=== PATIENT | female | born 1990 | race Caucasian/White ===

== ENCOUNTER → 2016-04-24 | Outpatient (CLI) | payer OTHER ==
[~2016-04-24] MED LIST: DEXT30TA7 PO; IBUP-1050 PO
== END | disposition home or self-care (01) ==
LOC: C.PAPS 11:15
PROVIDERS: ATTEND Obstetrics & Gynecology
DX: Z01.419 Encounter for gynecological examination (general) (routine) without abnormal findings (principal)

== ENCOUNTER 2016-05-15 15:11 | Emergency (ER) | payer OTHER ==
[~2016-05-15] VITALS: Ht 160 cm; Wt 46.9 kg
[~2016-05-15 15:11] MED LIST changes: -IBUP-1050 PO
[2016-05-15 15:34] VITALS: TEMP 36.8; Ht 160 cm; Wt 46.9 kg
[2016-05-15] MEDS ORDERED: SUCRALFATE 1 GM TAB PO STA (16:53)
[2016-05-15] MEDS ORDERED: GI COCKTAIL PO STA (16:53)
[2016-05-15] MEDS ORDERED: FAMOTIDINE 20 MG TAB PO STA (16:53)
--- NOTE | 2016-05-15 16:56 | EMERGENCY ROOM VISIT NOTE ---
History Report prepared by Adrienne: Darren Cavanaugh Under the Supervision of: Dr. Omi Arceo M.D. First contact with patient: 16:43 Chief Complaint: CHEST PAIN Stated Complaint: CHEST PRESSURE; SOB Nursing Triage Summary: PT WAS IN [place] 3 WEEKS AGO AND STARTED FEELING LIGHTHEADED WITH CHEST PAIN, SEEN IN AN URGENT CARE IN [place] AND WAS SENT HOME WITH A STEROID PRESCRIPTION AND A DIAGNOSIS OF PLEURESIS. PT CAME BACK TO ID RECENTLY AND WAS SEEN BY HER PCP AND WAS PLACED BACK ON STEROIDS AND HAD A RESOLVE OF THESE SYMPTOMS ON THE . PT FINISHED STEROID PRESCRIPTION AND SUDDENLY YESTERDAY SHE FELT THE SYMPTOMS COME BACK: LIGHTHEADED, DIZZY, WITH CRUSHING CHESTPAIN, 6/10 AT REST, 10/10 WITH ACTIVITY. History of Present Illness The patient is a 25 year old female who presents to the Emergency Room with complaints of waxing and waning chest pain that started around 3 weeks ago while she was on break in [place]. She describes the pain as a tightness, and it is worsened by any exertion, including talking. Whenever she exerts herself, she also gets short of breath. The patient also complains of lightheadedness. Lying still makes the pain a bit better. She went to an ER in [place] before flying back to [place]. She was diagnosed with pleurisies. Her d-dimer was normal there. The patient saw her primary care physician recently when she returned to [place], and the patient was put on Prednisone. The patient says the antibiotic did not relieve her symptoms, but it did make her jittery. She says the symptoms waned on their own for a while, but the pain came back a week ago, and the pain was even worse than before. 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 She says she currently does have the pain. The patient denies any abdominal pain, except for where she had her endometriosis. She has a history of mitral valve prolapse. She is not on control. She is an ex-smoker. The patient has a family history of heart disease. She denies any chance of . She just got off her period 5 days ago. Source of History: patient Onset: 3 weeks ago Position: chest Quality: other (tightness) Timing: waxes/wanes, worsening Modifying Factors (Worsening): exertion Modifying Factors (Relieving): other (staying still) Associated Symptoms: + SOB, No abdominal pain Note: Associated symptoms: Lightheadedness. Review of Systems See HPI for pertinent positives & negatives. A total of 10 systems reviewed and were otherwise negative. Past Medical & Surgical Medical Problems: (1) Mitral valve prolapse (2) Scoliosis Family History No pertinent family history Social History Smoking Status: Former Smoker Alcohol Use: none Drug Use: none Marital Status: in relationship Occupation Status: [employer] Current/Historical Medications Scheduled PRN Ibuprofen (Advil), 200 MG PO Q6H PRN for Pain or Fever Allergies Coded Allergies: Doxycycline (Unverified Allergy, Severe, "SEVERELY SICK" -PT, 12/17/15) Amoxicillin (Verified Allergy, Intermediate, hives, swelling, 12/17/15) Erythromycin (Verified Allergy, Intermediate, swelling, hives, 12/17/15) Gemifloxacin (Verified Allergy, Intermediate, hives, swelling, 12/17/15) Penicillins (Verified Allergy, Intermediate, hives, swelling, 12/17/15) Physical Exam Vital Signs Date Time Temp Pulse Resp B/P Pulse Ox O2 Delivery O2 Flow Rate FiO2 05/15/16 19:46 84 18 106/69 99 Room Air 05/15/16 17:47 91 15 113/80 99 Room Air 05/15/16 17:20 88 05/15/16 17:16 105 16 120/71 100 Room Air 05/15/16 17:11 99 Room Air 05/15/16 17:11 99 Room Air 05/15/16 15:34 96 Room Air 05/15/16 15:34 36.8 125 18 116/67 98 Room Air Physical Exam GENERAL: Patient is a healthy-appearing well-nourished HEAD: Normocephalic atraumatic EYES: Ocular movements intact pupils equal and react to light OROPHARYNX mucous membranes are moist no exudates present no erythema or edema present NECK: Supple no nuchal rigidity CHEST: Good equal expansion LUNGS: Clear and equal to auscultation CARDIAC: Normal S1 and S2 ABDOMEN: Soft nontender no guarding BACK: No CVA tenderness EXTREMITIES: No pain upon palpation normal muscle strength in all groups no clubbing cyanosis or edema NEURO: Patient is following commands is answering questions appropriately. Alert and oriented x3 Cranial Nerves 2-12 grossly intact Medical Decision & Procedures ER Provider Diagnostic Interpretation: X-ray results as stated below per interpretation by me and the radiologist: CHEST ONE VIEW PORTABLE HISTORY: Atypical chest pain. Short of breath. COMPARISON: Chest 01/30/2015. FINDINGS: The lungs are clear. Cardiac silhouette is normal in size. No pleural effusions. No pneumothorax. No change in the thoracic spine dextroscoliosis. IMPRESSION: No acute process. Electronically signed by: Jordan Medina M.D. 05/15/2016 5:31 PM Dictated Date/Time: 05/15/2016 5:30 PM Laboratory Results 05/15/16 17:15 Red Blood Count 4.72, Mean Corpuscular Volume 89.0, Mean Corpuscular Hemoglobin 31.8, Mean Corpuscular Hemoglobin Concent 35.7, Mean Platelet Volume 10.6, Neutrophils (%) (Auto) 70.4, Lymphocytes (%) (Auto) 21.8, Monocytes (%) (Auto) 6.2, Eosinophils (%) (Auto) 1.0, Basophils (%) (Auto) 0.5, Neutrophils # (Auto) 5.44, Lymphocytes # (Auto) 1.69, Monocytes # (Auto) 0.48, Eosinophils # (Auto) 0.08, Basophils # (Auto) 0.04 05/15/16 17:15 Test 05/15/16 17:15 05/15/16 17:21 05/15/16 18:51 White Blood Count 7.74 K/uL (4.8-10.8) Red Blood Count 4.72 M/uL (4.2-5.4) Hemoglobin 15.0 g/dL (12.0-16.0) Hematocrit 42.0 % (37-47) Mean Corpuscular Volume 89.0 fL (80-100) Mean Corpuscular Hemoglobin 31.8 pg (25-34) Mean Corpuscular Hemoglobin Concent 35.7 g/dl (32-36) Platelet Count 243 K/uL (130-400) Mean Platelet Volume 10.6 fL (7.4-10.4) Neutrophils (%) (Auto) 70.4 % Lymphocytes (%) (Auto) 21.8 % Monocytes (%) (Auto) 6.2 % Eosinophils (%) (Auto) 1.0 % Basophils (%) (Auto) 0.5 % Neutrophils # (Auto) 5.44 K/uL (1.4-6.5) Lymphocytes # (Auto) 1.69 K/uL (1.2-3.4) Monocytes # (Auto) 0.48 K/uL (0.11-0.59) Eosinophils # (Auto) 0.08 K/uL (0-0.5) Basophils # (Auto) 0.04 K/uL (0-0.2) RDW Standard Deviation 38.6 fL (36.4-46.3) RDW Coefficient of Variation 12.0 % (11.5-14.5) Immature Granulocyte % (Auto) 0.1 % Immature Granulocyte # (Auto) 0.01 K/uL (0.00-0.02) Anion Gap 13.0 mmol/L (3-11) Est Creatinine Clear Calc Drug Dose 99.3 ml/min Estimated GFR () 142.5 Estimated GFR (Non- 122.9 BUN/Creatinine Ratio 22.0 (10-20) Calcium Level 9.2 mg/dl (8.5-10.1) Total Bilirubin 0.5 mg/dl (0.2-1) Direct Bilirubin mg/dl (0-0.2) Aspartate Amino Transf (AST/SGOT) 17 U/L (15-37) Alanine Aminotransferase (ALT/SGPT) 22 U/L (12-78) Alkaline Phosphatase 61 U/L (45-117) Total Creatine Kinase 46 U/L (26-192) Creatine Kinase MB < 0.5 ng/ml (0.5-3.6) Creatine Kinase MB Ratio (0-3.0) Troponin I < 0.015 ng/ml (0-0.045) Total Protein 8.3 gm/dl (6.4-8.2) Albumin 4.6 gm/dl (3.4-5.0) Lipase 157 U/L (73-393) Chemistry Specimen Hemolysis Bedside D-Dimer 148 ng/mlFEU (0-450) Bedside Troponin I 0.000 ng/ml (0-0.045) Labs reviewed by ED physician. Medications Administered Medications (Trade) Dose Ordered Sig/Joann Route Start Time Stop Time Status Last Admin Dose Admin Miscellaneous Medication (Gi Cocktail) 24 ml NOW STAT PO 05/15/16 16:53 05/15/16 16:55 DC 05/15/16 17:09 24 ML Famotidine (Pepcid Tab) 20 mg NOW STAT PO 05/15/16 16:53 05/15/16 16:55 DC 05/15/16 17:08 20 MG Sucralfate (Carafate Tab) 1 gm NOW STAT PO 05/15/16 16:53 05/15/16 16:55 DC 05/15/16 17:09 1 GM Al Hydroxide/Mg Hydroxide (Maalox Susp) 30 ml STK-MED ONCE .ROUTE 05/15/16 17:06 05/15/16 17:07 DC 05/15/16 17:09 30 ML Lidocaine HCl 20 ml 20 ml STK-MED ONCE .ROUTE 05/15/16 17:06 05/15/16 17:07 DC 05/15/16 17:09 20 ML Sodium Chloride (Nss 500ml) 500 ml @ 999 mls/hr Q31M STAT IV 05/15/16 17:59 05/15/16 18:29 DC 05/15/16 18:19 999 MLS/HR ECG Indication: chest pain Rate (beats per minute): 92 Rhythm: normal sinus Findings: no acute ischemic change, no ectopy Change: Repeat ECG: normal sinus rhythm at 93 bpm, no ectopy, no acute ischemic changes. ED Course 1643: Past medical records reviewed. The patient was evaluated in room A3. A complete history and physical examination was performed. 1652: Ordered Carafate Tab 1 gm PO, Pepcid Tab 20 mg PO, GI Cocktail 24 ml PO. 1758: Ordered Toradol Inj 30 mg IV, NSS 500 ml @ 999 mls/hr IV. 1926: I reevaluated the patient and she is resting comfortably. The patient verbally expressed understanding and agreement of the treatment plan. The patient will be discharged. Medical Decision Differential diagnosis: Etiologies such as cardiac ischemia, aortic dissection, pulmonary embolism, pneumonia, pneumothorax, musculoskeletal, infections, pericarditis, myocarditis , esophageal rupture, gastrointestinal, as well as others were entertained. This is a 25-year-old female who presents emergency department complaining of chest pressure. The patient reports that she was recently in emergency department in [place] and worked up for similar symptoms. The patient has a follow-up with cardiology on Wednesday. Moving does not do anything to the pain. Based on the patient's complaints, the patient was given a GI cocktail, Pepcid and Carafate. Repeat examination revealed no improvement in the patient's symptoms. The patient was also given IV Profen in the emergency department however this also did not improve the patient's symptoms. She had serial EKGs performed which were unchanged. The patient's pain has been ongoing for the past 2 weeks and I would expect that her troponin would be elevated if this were related to her heart. As such it is not. A repeat troponin level also revealed the patient's troponin to be 0. I believe based on these findings at the patient is well enough to be discharged home for follow-up with cardiology on Wednesday. I did stress the need to return to the emergency department the pain worsens. I also recommended no strenuous activity until Wednesday. Patient was in agreement with treatment plan. Impression Primary Impression: Acute costochondritis Scribe Attestation The scribe's documentation has been prepared under my direction and personally reviewed by me in its entirety. I confirm that the note above accurately reflects all work, treatment, procedures, and medical decision making performed by me. Departure Information Dispostion Home / Self-Care Referrals Tressa Sarkar MD (PCP) Shaun Power MD Forms HOME CARE DOCUMENTATION FORM, IMPORTANT VISIT INFORMATION, School Instructions, Work Instructions Patient Instructions ED Chest Pain Costochondritis, My [facility] Additional Instructions Follow up with Dr Power's office on Wednesday Take 600 mg Ibuprofen every 6 hours You have been examined and treated today on an emergency basis only. This is not a substitute for, or an effort to provide, complete comprehensive medical care. It is impossible to recognize and treat all injuries or illnesses in a single emergency department visit. It is therefore important that you follow up closely with Dr Sarkar. Call as soon as possible for an appointment. Thank you for your time and consideration. I look forward to speaking with you again soon. Please don't hesitate to call us if you have any questions.
[2016-05-15] MEDS ORDERED: ALUMINUM/MAGNESIUM SUSP 30 ML UDC ONE (17:06)
[2016-05-15] MEDS ORDERED: LIDOCAINE HCL 2% VISC SOLN 20 ML UDC ONE (17:06)
[2016-05-15 17:11] VITALS: O2SAT 99
[2016-05-15 17:26] LABS: BASO % 0.5 %; BASO ABS # 0.04 K/uL (0-0.2); COMPLETE YES; IG% 0.1 %; LYMPH % 21.8 %; LYMPH ABS # 1.69 K/uL (1.2-3.4); MEAN CORPUSCULAR HEMOGLOBIN 31.8 pg (25-34); MEAN CORPUSCULAR HGB CONC 35.7 g/dl (32-36); MEAN PLATELET VOLUME 10.6 fL (7.4-10.4); MONO % 6.2 %; NEUT % 70.4 %; PLATELET COUNT 243 K/uL (130-400); RED BLOOD COUNT 4.72 M/uL (4.2-5.4); WHITE BLOOD COUNT 7.74 K/uL (4.8-10.8)
--- NOTE | 2016-05-15 17:32 | DIAGNOSTIC IMAGING REPORT ---
CHEST ONE VIEW PORTABLE HISTORY: Atypical chest pain. Short of breath. COMPARISON: Chest 01/30/2015. FINDINGS: The lungs are clear. Cardiac silhouette is normal in size. No pleural effusions. No pneumothorax. No change in the thoracic spine dextroscoliosis. IMPRESSION: No acute process. Electronically signed by: Jordan Medina M.D. 05/15/2016 5:31 PM Dictated Date/Time: 05/15/2016 5:30 PM
[2016-05-15] MEDS ORDERED: IBUP-1050 PO (17:59)
[2016-05-15] MEDS ORDERED: SODIUM CHLORIDE 0.9% 500ML 500 ML IV STA (17:59)
[2016-05-15] MEDS ORDERED: KETOROLAC TROMETHAMINE 30 MG/ML VIAL IV STA (17:59)
[2016-05-15 18:03] LABS: ALKALINE PHOSPHATASE 61 U/L (45-117); ALT/SGPT 22 U/L (12-78); AST/SGOT 17 U/L (15-37); BLOOD UREA NITROGEN 14 mg/dl (7-18); CALCIUM 9.2 mg/dl (8.5-10.1); CARBON DIOXIDE 24 mmol/L (21-32); CHLORIDE 101 mmol/L (98-107); CREATININE 0.63 mg/dl (0.60-1.20); GLUCOSE 72 mg/dl (70-99); POTASSIUM 3.8 mmol/L (3.5-5.1); SODIUM 138 mmol/L (136-145)
[2016-05-15 19:46] VITALS: BP 106/69; PULSE 84; O2SAT 99
[2016-05-15 22:12] LABS: ISTAT CREATININE 0.6 mg/dl (0.6-1.3); ISTAT HEMOGLOBIN 14.3 g/dl (12.0-16.0); ISTAT IONIZED CALCIUM 1.1 mmol/l (1.12-1.32)
== END 2016-05-15 19:47 | disposition home or self-care (01) ==
LOC: C.EDB 15:13 → C.EDA 19:47
DX: M94.0 Chondrocostal junction syndrome [Tietze] (principal); I34.1 Nonrheumatic mitral (valve) prolapse; Z87.891 Personal history of nicotine dependence; Z88.0 Allergy status to penicillin; Z88.1 Allergy status to other antibiotic agents; Z88.8 Allergy status to other drugs, medicaments and biological substances

== ENCOUNTER → 2016-05-19 | Outpatient (CLI) | payer OTHER ==
[~2016-05-19] MED LIST changes: -DEXT30TA7 PO; +IBUP-1050 PO; +OPTIRAY 320 IV PRN
--- NOTE | 2016-05-19 14:07 | DIAGNOSTIC IMAGING REPORT ---
CHEST CTA for PULMONARY ARTERIES CT DOSE: 200.65 mGy.cm HISTORY: Atypical chest pain. TECHNIQUE: Multiaxial CT images of the chest were performed following the intravenous administration of contrast to evaluate the pulmonary arteries. Maximal intensity projection images were also obtained. COMPARISON STUDY: Chest 05/15/2016. FINDINGS: There is a normal caliber thoracic aorta with no evidence for dissection. There is no evidence for pulmonary embolus. No pleural effusions. No pneumothorax. The liver and spleen are unremarkable. No mediastinal or hilar lymphadenopathy. The central airways are patent. A single linear density at the left lung base consistent with subsegmental atelectasis or scarring. Otherwise, the lungs are clear. Moderate dextroscoliosis of the thoracic spine. IMPRESSION: No evidence for pulmonary embolus. Moderate dextroscoliosis of the thoracic spine. Electronically signed by: Jordan Medina M.D. 05/19/2016 2:06 PM Dictated Date/Time: 05/19/2016 1:53 PM
== END | disposition home or self-care (01) ==
LOC: C.CTS 13:25
PROVIDERS: ATTEND Internal Medicine Cardiovascular Disease
DX: R07.9 Chest pain, unspecified (principal); M41.9 Scoliosis, unspecified

== ENCOUNTER → 2016-08-24 | Outpatient (CLI) | payer OTHER ==
[~2016-08-24] MED LIST changes: -OPTIRAY 320 IV PRN
[2016-08-24 16:31] LABS: BASO % 0.5 %; BASO ABS # 0.05 K/uL (0-0.2); COMPLETE YES; EOS % 1.6 %; HEMATOCRIT 42.1 % (37-47); IG% 0.2 %; LYMPH % 23.1 %; LYMPH ABS # 2.15 K/uL (1.2-3.4); MEAN CELL VOLUME 93.3 fL (80-100); MEAN CORPUSCULAR HEMOGLOBIN 31.9 pg (25-34); MEAN CORPUSCULAR HGB CONC 34.2 g/dl (32-36); MEAN PLATELET VOLUME 10.4 fL (7.4-10.4); MONO % 5.8 %; NEUT % 68.8 %; PLATELET COUNT 245 K/uL (130-400); RED BLOOD COUNT 4.51 M/uL (4.2-5.4); WHITE BLOOD COUNT 9.29 K/uL (4.8-10.8)
[2016-08-24 17:09] LABS: ALT/SGPT 21 U/L (12-78); AST/SGOT 21 U/L (15-37); BLOOD UREA NITROGEN 11 mg/dl (7-18); BUN/CREATININE RATIO 19.4 (10-20); CALCIUM 8.6 mg/dl (8.5-10.1); CARBON DIOXIDE 29 mmol/L (21-32); CHLORIDE 105 mmol/L (98-107); CREATININE 0.56 mg/dl (0.60-1.20); GLUCOSE 88 mg/dl (70-99); POTASSIUM 3.9 mmol/L (3.5-5.1); SODIUM 141 mmol/L (136-145)
[2016-08-24 17:19] LABS: ALB/GLOB RATIO 1.1 (0.9-2); ALKALINE PHOSPHATASE 73 U/L (45-117); THYROID STIMULATING HORMONE 0.988 uIu/ml (0.300-4.500)
== END | disposition home or self-care (01) ==
LOC: C.LAB 16:02
PROVIDERS: ATTEND Family Medicine
DX: R63.4 Abnormal weight loss (principal)

== ENCOUNTER → 2016-12-04 | Outpatient (CLI) | payer OTHER ==
[2016-12-04 18:49] LABS: BASO % 0.7 %; BASO ABS # 0.05 K/uL (0-0.2); COMPLETE YES; EOS % 3.6 %; HEMATOCRIT 39.1 % (37-47); IG% 0.3 %; LYMPH % 29.1 %; LYMPH ABS # 2.02 K/uL (1.2-3.4); MEAN CELL VOLUME 91.4 fL (80-100); MEAN CORPUSCULAR HEMOGLOBIN 31.8 pg (25-34); MEAN CORPUSCULAR HGB CONC 34.8 g/dl (32-36); MEAN PLATELET VOLUME 10.4 fL (7.4-10.4); MONO % 10.2 %; NEUT % 56.1 %; PLATELET COUNT 241 K/uL (130-400); RED BLOOD COUNT 4.28 M/uL (4.2-5.4); WHITE BLOOD COUNT 6.94 K/uL (4.8-10.8)
[2016-12-04 19:12] LABS: BLOOD UREA NITROGEN 13 mg/dl (7-18); BUN/CREATININE RATIO 23.8 (10-20); CALCIUM 8.5 mg/dl (8.5-10.1); CARBON DIOXIDE 32 mmol/L (21-32); CHLORIDE 105 mmol/L (98-107); CREATININE 0.54 mg/dl (0.60-1.20); GLUCOSE 70 mg/dl (70-99); MAGNESIUM 2.1 mg/dl (1.8-2.4); SODIUM 140 mmol/L (136-145)
[2016-12-04 19:23] LABS: ALKALINE PHOSPHATASE 71 U/L (45-117); ALT/SGPT 24 U/L (12-78); AST/SGOT 16 U/L (15-37); FERRITIN 22.6 ng/ml (8.0-388.0); THYROID STIMULATING HORMONE 0.572 uIu/ml (0.300-4.500)
== END | disposition home or self-care (01) ==
LOC: C.LAB 16:36
PROVIDERS: ATTEND Nurse Practitioner Family
DX: R51 Headache (principal); R53.83 Other fatigue

== ENCOUNTER → 2017-05-04 | Outpatient (CLI) | payer OTHER ==
[2017-05-04 17:29] LABS: BASO % 0.6 %; BASO ABS # 0.05 K/uL (0-0.2); EOS ABS # 0.26 K/uL (0-0.5); HEMATOCRIT 41.3 % (37-47); HEMOGLOBIN 14.3 g/dL (12.0-16.0); IG# 0.02 K/uL (0.00-0.02); LYMPH % 28.7 %; LYMPH ABS # 2.47 K/uL (1.2-3.4); MEAN CELL VOLUME 90.6 fL (80-100); MEAN CORPUSCULAR HEMOGLOBIN 31.4 pg (25-34); MEAN CORPUSCULAR HGB CONC 34.6 g/dl (32-36); MEAN PLATELET VOLUME 10.1 fL (7.4-10.4); MONO % 7.1 %; MONO ABS # 0.61 K/uL (0.11-0.59); NEUT % 60.4 %; PLATELET COUNT 275 K/uL (130-400); RED CELL DISTRIBUTION WIDTH CV 11.9 % (11.5-14.5); RED CELL DISTRIBUTION WIDTH SD 39.4 fL (36.4-46.3); WHITE BLOOD COUNT 8.61 K/uL (4.8-10.8)
== END | disposition home or self-care (01) ==
LOC: C.LAB 16:24
PROVIDERS: ATTEND Family Medicine
DX: R51 Headache (principal); R20.0 Anesthesia of skin

== ENCOUNTER 2017-05-25 21:08 | Emergency (ER) | payer OTHER ==
[~2017-05-25] VITALS: Ht 160 cm; Wt 52.7 kg
[2017-05-25 21:12] VITALS: TEMP 36.6; Ht 160 cm; Wt 52.7 kg
--- NOTE | 2017-05-25 23:01 | DIAGNOSTIC IMAGING REPORT ---
HEAD WITHOUT CONTRAST (CT) CLINICAL HISTORY: 26 years-old Female with frequent headaches, worse in am. Acute frequent headaches TECHNIQUE: Multiple axial CT images of the head were obtained without contrast. A dose lowering technique was utilized adhering to the principles of ALARA. CT DOSE: 537.48 mGy.cm COMPARISON: CT head 01/31/2015. FINDINGS: No acute intracranial hemorrhage, midline shift, intracranial mass, hydrocephalus, territorial ischemia or abnormal extra-axial collection. The calvarium is intact. The paranasal sinuses, mastoid air cells, and middle ear cavities are clear. IMPRESSION: No acute intracranial abnormality. The above report was generated using voice recognition software. It may contain grammatical, syntax or spelling errors. Electronically signed by: William Dubose M.D. 05/25/2017 11:00 PM Dictated Date/Time: 05/25/2017 10:58 PM
[2017-05-25] MEDS ORDERED: TRIMETHOPRIM/POLYMYXIN B OP STA (23:18)
--- NOTE | 2017-05-25 23:26 | EMERGENCY ROOM VISIT NOTE ---
History First contact with patient: 21:30 Chief Complaint: EYE PAIN Stated Complaint: EYE PAIN R, HEAD PAIN History of Present Illness The patient is a 26 year old female who presents to the Emergency Room with complaints of pain in her right eye. The patient states that she was giving her dog clindamycin mixed with a mint drink some of the solution shot into her right eye. She states that initially, she had stinging in her right eye. There was initially a small amount of blurred vision, however this has improved. She rinsed the eye immediately with water. She states that her eye feels better, however she now has a right-sided headache. She rates her discomfort a 6/10. The patient does admit she has been getting frequent headaches over the past few weeks. She has been seeing her primary care provider for this and recently saw an eye doctor to have her vision checked. She states she has the headaches almost daily and that they are worse in the morning. She has not had any imaging for her headaches. Review of Systems A complete 10 point review of systems was reviewed with the patient with pertinent positives and negatives as per history of present illness. All else were negative. Past Medical/Surgical History Medical Problems: (1) Mitral valve prolapse (2) Scoliosis Family History No pertinent family history Social History Smoking Status: Never Smoker Alcohol Use: none Drug Use: none Marital Status: in relationship Housing Status: lives with family Occupation Status: [employer] student Current/Historical Medications Scheduled PRN Ibuprofen (Advil), 200 MG PO Q6H PRN for Pain or Fever Physical Exam Vital Signs Date Time Temp Pulse Resp B/P (MAP) Pulse Ox O2 Delivery O2 Flow Rate FiO2 05/25/17 23:34 72 18 108/59 100 Room Air 05/25/17 21:12 36.6 90 18 118/75 95 Room Air Right Eye Acuity: 20/25 Left Eye Acuity: 20/15 Physical Exam VITALS: Vitals are noted on the nurse's note and reviewed by myself. Vital signs stable. GENERAL: This is a 26-year-old female, in no acute distress, nondiaphoretic, well-developed well-nourished. SKIN: The skin was without rashes. HEAD: Normocephalic atraumatic. EARS: External auditory canals clear, tympanic membranes pearly gonzalez without erythema or effusion bilaterally. EYES: Pupils equal round and reactive to light and accommodation. Extraocular movements intact. No conjunctival injection. No uptake of fluorescein on slit- lamp examination. MOUTH: Mucous membranes moist. Tonsils are not enlarged. Pharynx without erythema or exudate. NECK: Supple without nuchal rigidity. No lymphadenopathy. HEART: Regular rate and rhythm without murmurs gallops or rubs. LUNGS: Clear to auscultation bilaterally without wheezes, rales or rhonchi. NEURO: Patient was alert and oriented to person place and time. Medical Decision & Procedures ER Provider Diagnostic Interpretation: HEAD WITHOUT CONTRAST (CT) FINDINGS: No acute intracranial hemorrhage, midline shift, intracranial mass, hydrocephalus, territorial ischemia or abnormal extra-axial collection. The calvarium is intact. The paranasal sinuses, mastoid air cells, and middle ear cavities are clear. IMPRESSION: No acute intracranial abnormality. Medications Administered Medications (Trade) Dose Ordered Sig/Joann Route Start Time Stop Time Status Last Admin Dose Admin Polymyxin/ Trimethoprim Sulfate (Polytrim Oph Soln) 1 drops NOW STAT OP 05/25/17 23:18 05/25/17 23:21 DC 05/25/17 23:33 1 DROPS Medical Decision The differential diagnosis includes corneal abrasion, acute intracranial bleed, meningitis, encephalitis, mass or mass effect, sinusitis, infection, tumor, headache, temporal arteritis and carbon monoxide exposure, and migraine. The patient was evaluated as above. Slit-lamp examination was performed and was normal. There was no evidence of corneal abrasion or corneal ulcer. She did likely have some irritation due to the exposure that occurred. She was given Polytrim drops to prevent infection. Patient does report a right-sided headache and upon further questioning, she admits she has had frequent headaches over the past few weeks. She does seem rather concerned about these and I did offer her head CT to rule out intracranial mass or other concerning cause of her headache. CT was performed and was read by radiology as above and is normal. I discussed importance of follow-up with her primary care provider for further testing and treatment. She verbalized understanding of my assessment and treatment plan and was discharged home in good condition. Medication Reconcilliation Current Medication List: was personally reviewed by me Blood Pressure Screening Patient's blood pressure: Normal blood pressure Impression Primary Impression: Headache Departure Information Dispostion Home / Self-Care Condition GOOD Referrals Tressa Sarkar MD (PCP) Patient Instructions My [facility] Additional Instructions Apply two drops to the right eye two times daily for the next 3 days. Follow up with your primary care provider regarding your headaches. Follow up with your sports photographer for any worsening symptoms or symptoms that do not resolve. Return to the emergency department for any vision problems, worsening headaches , or any new/concerning symptoms. Problem Qualifiers Primary Impression: Headache
[2017-05-25 23:34] VITALS: BP 108/59; PULSE 72; O2SAT 100
== END 2017-05-25 23:37 | disposition home or self-care (01) ==
LOC: C.EDB 21:11 → C.EDD 23:37
DX: R51 Headache (principal); I34.1 Nonrheumatic mitral (valve) prolapse; M41.9 Scoliosis, unspecified

== ENCOUNTER → 2017-08-02 | Outpatient (CLI) | payer OTHER ==
[~2017-08-02] MED LIST changes: +GADAVIST IV PRN
--- NOTE | 2017-08-02 09:07 | DIAGNOSTIC IMAGING REPORT ---
MRI OF THE BRAIN WITHOUT AND WITH IV CONTRAST CLINICAL HISTORY: R20.0 Numbness and [id number] New onset of headaches. Familial history of multiple sclerosis. Body weakness. Left lower leg is numb. COMPARISON STUDY: Noncontrast head CT dated May 25, 2017 TECHNIQUE: MRI of the brain was performed from the vertex to the skull base utilizing various T1 and T2 weighted sequences. Following the IV administration of 5 mL of Gadavist contrast, additional enhanced images were obtained. FINDINGS: Sagittal T1, axial diffusion, proton density and T2 weighted axial, coronal FLAIR, and pre and post axial T1-weighted images were acquired. These were supplemented with post gadolinium coronal T1 weighted images. No intra or extra-axial mass lesions are visualized. Axial diffusion-weighted images reveal no evidence of acute or subacute infarction. There is no evidence of ventricular dilatation. Proton density T2-weighted and FLAIR images reveal a single nonspecific 2 mm focus of increased T2 and FLAIR signal within the right temporal white matter. There are no abnormal flow voids. There is no evidence of pathologic enhancement. IMPRESSION: 1. No evidence of acute or subacute infarction 2. No evidence of intracranial mass 3. Single nonspecific 2 mm focus of increased T2 and FLAIR signal within the right temporal white matter. Otherwise normal MRI of the brain Electronically signed by: Oscar Nick M.D. 08/02/2017 9:05 AM Dictated Date/Time: 08/02/2017 8:57 AM
== END | disposition home or self-care (01) ==
LOC: C.MRIBC 07:48
PROVIDERS: ATTEND Psychiatry & Neurology Neurology
DX: R20.0 Anesthesia of skin (principal); R20.2 Paresthesia of skin; R51 Headache